=== PATIENT | female | born 1965 | race Caucasian/White ===

== ENCOUNTER → 2019-01-13 | Day surgery (SDC) | payer OTHER ==
--- NOTE | 2019-01-14 17:20 | PATH ---
Surgical Pathology Report Patient Name: GELY MORALES [facility]. Rec. #: [id number] /Age/Gender: 1965 (Age: 53) / F Account: [id number] Location: [facility] Taken: 01/13/2019 Received: 01/13/2019 Reported: 01/14/2019 Physicians: Jose G Méndez M.D. Specimen(s) Received A: LEFT BREAST SPECIMEN WITH CALCIFICATIONS B: LEFT BREAST SPECIMEN WITHOUT CALCIFICATIONS Clinical History Nonpalpable lesion Mammographic findings: Microcalcification, suspicious Final Diagnosis A. BREAST, LEFT, WITH CALCIFICATIONS, STEREOTACTIC CORE BIOPSY: BENIGN BREAST PARENCHYMA WITH FIBROADENOMATOID CHANGES, SCLEROSING ADENOSIS, AND ASSOCIATED MICROCALCIFICATIONS. B. BREAST, LEFT, WITHOUT CALCIFICATIONS, STEREOTACTIC CORE BIOPSY: BENIGN BREAST PARENCHYMA WITH FIBROADENOMATOID CHANGES, SCLEROSING ADENOSIS, AND ASSOCIATED MICROCALCIFICATIONS. Electronically Signed Grace Alatorre M.D. Gross Description A. Received in formalin labeled "left breast with calcifications," are 4 diana-yellow, cylindrical portions of fibroadipose tissue ranging from 0.8-2.1 cm in length and averaging 0.4 cm in diameter. The specimens are submitted in toto in one cassette. B. Received in formalin labeled "left breast without calcifications," are 4 diana-yellow, cylindrical portions of fibroadipose tissue ranging from 0.6-2.2 cm in length and averaging 0.3 cm in diameter. The specimens are submitted in toto in one cassette. Time to formalin fixation: 5 minutes Total formalin fixation time: Approximately 6 hours. 01/13/[address] [facility]01/13/2019
== END | disposition home or self-care (01) ==
LOC: FMAMMOTONE 09:34
PROVIDERS: ATTEND Family Medicine
PROC: 0HBU3ZX Excision of Left Breast, Percutaneous Approach, Diagnostic (ICD-10-PCS; principal; 2019-01-13)
DX: N60.22 Fibroadenosis of left breast (principal); N64.89 Other specified disorders of breast; R92.1 Mammographic calcification found on diagnostic imaging of breast
CPT/HCPCS: 19081; 87899; 88305-TC; A4648

== ENCOUNTER → 2022-05-09 | Day surgery (SDC) | payer OTHER | END | disposition home or self-care (01) | LOC: FMAMMOTONE 12:29 | PROVIDERS: ATTEND Internal Medicine | PROC: 0HBU3ZX Excision of Left Breast, Percutaneous Approach, Diagnostic (ICD-10-PCS; principal; 2022-05-09) | DX: D24.2 Benign neoplasm of left breast (principal); R92.0 Mammographic microcalcification found on diagnostic imaging of breast | CPT/HCPCS: 19081; 76098-TC-FY; 88305-TC ==

== ENCOUNTER 2022-08-28 06:28 | Day surgery (SDC) | payer OTHER ==
[2022-08-26 12:52] VITALS: BMI 28.1
[2022-08-28] MEDS ORDERED: LIDOCAINE HCL 2% (20ML MULTI-DOSE VIAL) ONE (07:03)
[2022-08-28] MEDS ORDERED: BUPIVACAINE HCL/PF 2.5 MG/ML - 30 ML VIAL IJ ONE (07:03)
[2022-08-28] MEDS ORDERED: LIDOCAINE HCL 2% 100 MG/5 ML DISP.SYRIN ONE (07:23)
[2022-08-28] MEDS ORDERED: PROPOFOL 40 ML ONE (07:23)
[2022-08-28] MEDS ORDERED: MIDAZOLAM HCL 2 MG/2 ML SINGLE DOSE VIAL ONE (07:23)
[2022-08-28] MEDS ORDERED: SUCCINYLCHOLINE CHLORIDE 200 MG/10 ML SYRINGE ONE (07:47)
[2022-08-28] MEDS ORDERED: ONDANSETRON 4 MG/2 ML VIAL IVPUSH PRN (08:20)
[2022-08-28] MEDS ORDERED: ACETAMINOPHEN 325 MG TABLET (FP) PO PRN (08:20)
[2022-08-28] MEDS ORDERED: LACTATED RINGERS SOLUTION 1,000 ML IV SCH (08:30)
[2022-08-28 09:11] VITALS: BP 116/76; PULSE 62; RESP 18; TEMP 97.8
== END 2022-08-28 09:31 | disposition home or self-care (01) ==
LOC: FASU 06:28
PROVIDERS: ATTEND Orthopaedic Surgery Hand Surgery
PROC: 0LB60ZZ Excision of Left Lower Arm and Wrist Tendon, Open Approach (ICD-10-PCS; principal; 2022-08-28 07:58)
DX: M67.442 Ganglion, left hand (principal)
CPT/HCPCS: 88305-TC; 94760